=== PATIENT | male | born 1960 | race Caucasian/White ===

== ENCOUNTER 2024-03-02 08:11 | Emergency (ER) | payer OTHER, SELFPAY ==
[2024-03-02 08:18] VITALS: BP 138/87; PULSE 70; RESP 20; TEMP 36.4; O2SAT 100
--- NOTE | 2024-03-02 08:35 | ED.EYEPROB ---
HPI - Eye Problem General Chief complaint: Eye Problems Stated complaint: right eye Related Data Allergies Allergy/AdvReac Type Severity Reaction Status Date / Time No Known Allergies Allergy Verified 03/02/24 08:21 Course Course Level of Care: Express Care Visit Vital Signs Vital signs: Vital Signs Temperature 36.4 C L 03/02/24 08:18 Pulse Rate 70 03/02/24 08:18 Respiratory Rate 20 03/02/24 08:18 Blood Pressure 138/87 03/02/24 08:18 Pulse Oximetry 100 03/02/24 08:18 Oxygen Delivery Room Air 03/02/24 08:18 Temperature 36.4 C L 03/02/24 08:18 Pulse Rate 70 03/02/24 08:18 Respiratory Rate 20 03/02/24 08:18 Blood Pressure 138/87 03/02/24 08:18 Pulse Oximetry 100 03/02/24 08:18 Oxygen Delivery Room Air 03/02/24 08:18 Discharge Plan Discharge Clinical Impression: Bacterial conjunctivitis Patient Disposition: Home, Self-Care Condition: Stable Instructions: Conjunctivitis (ED) Additional Instructions: CONTINUE TO TAKE DAILY ALLERGY MEDICATION FLONASE NASAL SPRAY PRESCRIBED TAKE PREDNISONE EVERY AM WITH FOOD UNTIL GONE USE EYE DROPS PRESCRIBED UNTIL GONE DO NOT RUB EYES FOLLOW UP WITH FAMILY EYE DOCTOR IN 48 HOURS FOR REEXAMINATION OF EYES Prescriptions: New prednisone 20 mg tablet 40 mg PO DAILY 5 Days Qty: 10 0RF ciprofloxacin HCl 0.3 % drops 2 drop RIGHT EYE Q4H 7 Days Qty: 5 0RF Rx Instructions: 2 drps; fluticasone propionate [Flonase Allergy Relief] 50 mcg/actuation spray,suspension 2 spray NASAL BID Qty: 9.9 0RF Rx Instructions: administer into each nostril Follow-up/Referrals: Michaelle,MD Aditya [Primary Care Provider] -
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
== END 2024-03-02 08:45 | disposition home or self-care (01) ==
PROVIDERS: Emergency Provider Nurse Practitioner Family; PCP Internal Medicine Infectious Disease
DX: H10.9 Unspecified conjunctivitis (principal)
CPT/HCPCS: 99213; G0463